=== PATIENT | female | born 1940 | race Caucasian/White ===

== ENCOUNTER 2016-06-28 16:26 | Emergency (ER) | payer OTHER ==
[~2016-06-28] VITALS: Ht 157.5 cm; Wt 68.9 kg
[~2016-06-28 16:26] MED LIST: B COMPLETE1 EACH PO; COLACE100 MG PO; COLCHICINE0.6 M1 PO; COQ10-VIT E 201 EACH PO; COUMADIN5 MG PO; COZAAR25 MG PO; ERGOCALCIF50000 UNIT PO; LORTAB 5-325 M1 EACH PO; LOVENOX80 MG/0.8 SC; MACU SUPPORT PO; PRAVASTATIN SOD20 MG PO; PREDNISONE10 MG PO; TYLENOL ARTHRI650 MG PO; VITAMIN B122500 MCG PO; WARFARIN SODIUM5 MG PO; XARELTO15 MG PO; ZALTRAP OP IJ
[2016-06-28 18:41] LABS: HEMATOCRIT 42.9 % (36.0-46.0); MCH 29.2 PG (29.0-34.0); MCHC 31.9 G/DL (30.0-36.0); MCV 91.5 FL (83-99); MEAN PLAT.VOLUME 9.8 uM^3 (9.5-12.4); PLATELET COUNT 178 K/uL (156-360); RBC DIS.WIDTH-SD 50.8 % (39-53); RED BLOOD COUNT 4.69 M/uL (3.80-5.20); WHITE BLOOD COUNT 5.5 K/uL (4.1-10.2)
[2016-06-28 18:49] LABS: CHLORIDE 108 mEq/L (99-109); SODIUM 138 mEq/L (136-147)
[2016-06-28 18:50] LABS: GLUCOSE 142 mg/dL (70-99); INTER. NORMALIZED RATIO 2.4; PROTHROMBIN TIME 25.6 (9.2-11.2)
[2016-06-28 18:52] LABS: ANION GAP 9 MEQ/L (2-14)
[2016-06-28 18:54] LABS: GFR ESTIMATE (CALCULATED) > 59 mL/min/
[2016-06-28 18:55] LABS: UREA NITROGEN (BUN) 26 mg/dL (9-23)
[2016-06-28 20:43] VITALS: BP 196/73
== END 2016-06-28 20:44 | disposition home or self-care (01) ==
LOC: EME 16:26 → EXP 16:26
PROVIDERS: Physician Assistant
DX: I82.511 Chronic embolism and thrombosis of right femoral vein (principal); I82.541 Chronic embolism and thrombosis of right tibial vein; R07.89 Other chest pain; Z86.711 Personal history of pulmonary embolism; Z79.01 Long term (current) use of anticoagulants; I10 Essential (primary) hypertension
CPT/HCPCS: 71275; 80048; 85027; 85610; 93971; 99281; 99284; J2405